=== PATIENT | male | born 1945 | race Caucasian/White ===

== ENCOUNTER 2018-04-20 00:41 | Inpatient (IN) ==
[2018-04-20] MEDS ORDERED: NS 1,000 ML IV ONE ×2 (03:48→07:51)
[2018-04-20 04:00] LABS: BASO# 0.05 X1000 (0.0-0.2); BASO% 0.6 % (0.0-0.8); EOS# 0.16 X1000 (0.0-0.7); HEMATOCRIT 38.9 % (42.0-52.0); HEMOGLOBIN 12.7 g/dL (14.0-18.0); IMM GRAN# 0.02 X1000 (0.0-0.04); IMM GRAN% 0.2 % (0.0-0.5); LYMPH# 1.53 X1000 (1.2-3.4); LYMPH% 18.7 % (20.5-51.1); MCH 30.8 PG (27-31); MCHC 32.6 g/dL (33-37); MCV 94.2 FL (81-99); MONO# 1.23 X1000 (0.11-0.59); MPV 12.1 FL (7.4-10.4); NEUT# 5.19 X1000 (1.4-6.5); NEUT% 63.5 % (42.2-75.2); PLT 141 X1000 (130-400); RBC 4.13 XMIL (4.7-6.1); RDW 13.2 % (11.5-14.5); WBC 8.18 X1000 (4.8-10.8)
[2018-04-20 04:14] LABS: INR 1.04; PROTIME 14.4 Seconds (11.0-16.0)
[2018-04-20 04:33] LABS: ALB/GLOB RATIO 1.1; CALCIUM 8.6 mg/dL (8.8-10.2); CREATININE 2.3 mg/dL (0.7-1.2); MAGNESIUM 2.3 mg/dL (1.5-2.7); POTASSIUM 5.2 mmol/L (3.5-5.1); TOTAL BILIRUBIN 0.43 mg/dL (0.20-1.00); TOTAL PROTEIN 7.8 g/dL (6.3-8.3)
[2018-04-20 04:58] LABS: CK INDEX 0.6 (0.0-2.5); CK-MB 6.51 ng/mL (0.0-5.0)
--- NOTE | 2018-04-20 06:25 | Diag Imaging Result Doc PS360 ---
EXAM: CT HEAD W/O CONTRAST HISTORY: fall. TECHNIQUE: CT head without contrast COMPARISON: None. FINDINGS: No parenchymal hemorrhage. No epidural or subdural hematoma. No subarachnoid hemorrhage. There is mild atrophy with mild chronic microvascular ischemic changes. No mass identified on this noncontrasted exam. No hydrocephalus. No skull fracture. IMPRESSION: No hemorrhage. No injury. A preliminary report was given at 4:23 AM This exam was performed using automated exposure control, adjustment of mA or kV according to patient size, and/or use of iterative reconstruction technique. Electronically signed by Nikko Otero 04/20/2018 6:23 AM
--- NOTE | 2018-04-20 06:45 | PROVIDER DOCUMENTATION ---
HPI-General Adult - General Chief Complaint: General Adult Stated Complaint: "generalized jerking" Time Seen by Provider: 04/20/18 03:40 Source: patient Allergies/Adverse Reactions: Patient Allergies Allergy/AdvReac Type Severity Reaction Status Date / Time No Known Allergies Allergy Verified 04/20/18 04:35 Home Medications: Home Medication List Medication Instructions Recorded Confirmed Last Taken Type Amlodipine [Norvasc] 10 mg PO DAILY 04/20/18 04/20/18 Unknown History Atorvastatin Calcium 40 mg PO HS 04/20/18 04/20/18 Unknown History Baclofen 20 mg PO BID 04/20/18 04/20/18 Unknown History Buspirone HCl 10 mg PO TID 04/20/18 04/20/18 Unknown History Cholecalciferol (Vitamin D3) 2,000 unit PO DAILY 04/20/18 04/20/18 Unknown History [D-1999] Citalopram [Celexa] 40 mg PO DAILY 04/20/18 04/20/18 Unknown History Gabapentin 300 mg PO BID 04/20/18 04/20/18 Unknown History Hydrochlorothiazide 25 mg PO DAILY 04/20/18 04/20/18 Unknown History Lisinopril 40 mg PO DAILY 04/20/18 04/20/18 Unknown History Metoprolol Tartrate 12.5 mg PO BID 04/20/18 04/20/18 Unknown History Psyllium Husk [Daily Fiber] 0.52 gm PO DAILY 04/20/18 04/20/18 Unknown History Ranitidine HCl 150 mg PO BID 04/20/18 04/20/18 Unknown History Spironolactone 25 mg PO DAILY 04/20/18 04/20/18 Unknown History - History of Present Illness -Gen Adult Nature of Presenting Problems: Pt states developing involuntary jerking movements to arms and legs last pm that have worsened. He denies fever or chills. No CP, SOB, MITCHELL. He states having 2 glasses of wine last pm. In the lobby here he stood up and fainted, collapsing to the ground. He denies preceding CP or other symptoms. Review of Systems - Adult - REVIEW OF SYSTEMS - ADULT Constitutional: denies: chills, fever, fatique, night sweats, weight gain Eyes: denies: dry eyes, decreased vision, blurred vision, double vision, redness Ears, Nose, Mouth & Throat: denies: epistaxis, mouth swelling, hoarseness, throat pain, throat swelling Respiratory: reports: no symptoms reported Gastrointestinal: reports: no symptoms reported Musculoskeletal: reports: no symptoms reported Integumentary: reports: no symptoms reported Neurological: reports: see HPI Past History - Adult - PAST MEDICAL HISTORY-ADULT Review of Records: reports: Nursing Assessment Review, Medications Reviewed Physical Exam-General - PHYSICAL EXAM-ADULT Initial Vital Signs Reviewed: Yes - CONSTITUTIONAL General Appearance: alert, obese, other (pale appearing.) - EYES Eyes: PERRL/EOMI, pink conjunctivae - HEAD, EARS, NOSE, MOUTH & THROAT HENMT: normocephalic/atraumatic, moist mucous membranes, normal ENT inspection, pharynx normal, pharyngeal erythema - NECK Neck: full range of motion, supple - RESPIRATORY Respiratory: chest non-tender, lungs clear, normal breath sounds, no respiratory distress - CARDIOVASCULAR Cardiovascular: normal peripheral pulses, regular rate, rhythm, no edema, no JVD - GASTROINTESTINAL (ABDOMEN) Abdominal Exam: normal bowel sounds, non tender, soft - MUSCULOSKELETAL Back Exam: normal inspection, no CVA tenderness Extremity: normal range of motion, non-tender, normal gait - SKIN Integumentary: normal color, normal turgor, warm/dry - NEUROLOGIC Neurologic: other (Occasional jerking movements. Alert, answering questions appropriately.) Progress - PLAN OF CARE/RESULTS Progress/Plan/Lab Results: Vital Signs - 8 hr 04/20/18 01:04 04/20/18 06:18 Temperature 98.3 F 98 F Pulse Rate 74 78 Respiratory Rate 20 20 Blood Pressure 96/81 146/73 O2 Sat by Pulse Oximetry 95 95 Laboratory Results - last 24 hr 04/20/18 04/20/18 04/20/18 03:33 03:50 03:50 WBC 8.18 RBC 4.13 L Hgb 12.7 L Hct 38.9 L MCV 94.2 MCH 30.8 MCHC 32.6 L RDW Std Deviation 13.2 Plt Count 141 MPV 12.1 H Immature Gran % (Auto) 0.2 Neut % (Auto) 63.5 Lymph % (Auto) 18.7 L Warrick % (Auto) 15.0 H Eos % (Auto) 2.0 Baso % (Auto) 0.6 Immature Gran # (Auto) 0.02 Neut # (Auto) 5.19 Lymph # (Auto) 1.53 Warrick # (Auto) 1.23 H Eos # (Auto) 0.16 Baso # (Auto) 0.05 PT INR PTT (Actin FS) Sodium 141 Potassium 5.2 H Chloride 102 Carbon Dioxide 24 L Anion Gap 15 BUN 37 H Creatinine 2.3 H Estimated GFR/1.73 m2 28 BUN/Creatinine Ratio 16 Glucose 100 POC Glucose 111 H Calculated Osmolality 290 Calcium 8.6 L Magnesium 2.3 Total Bilirubin 0.43 AST 40 H ALT 22 Alkaline Phosphatase 55 Creatine Kinase 1038 H Creatine Kinase Index 0.6 CK-MB (CK-2) 6.51 H Troponin T Hdh-Z-Rpwprfilnlu Pept Total Protein 7.8 Albumin 4.0 Globulin 3.8 Albumin/Globulin Ratio 1.1 Plasma Lactate Plasma/Serum Ethyl Alc 04/20/18 04/20/18 04/20/18 03:50 03:50 03:50 WBC RBC Hgb Hct MCV MCH MCHC RDW Std Deviation Plt Count MPV Immature Gran % (Auto) Neut % (Auto) Lymph % (Auto) Warrick % (Auto) Eos % (Auto) Baso % (Auto) Immature Gran # (Auto) Neut # (Auto) Lymph # (Auto) Warrick # (Auto) Eos # (Auto) Baso # (Auto) PT 14.4 INR 1.04 PTT (Actin FS) 34.0 Sodium Potassium Chloride Carbon Dioxide Anion Gap BUN Creatinine Estimated GFR/1.73 m2 BUN/Creatinine Ratio Glucose POC Glucose Calculated Osmolality Calcium Magnesium Total Bilirubin AST ALT Alkaline Phosphatase Creatine Kinase Creatine Kinase Index CK-MB (CK-2) Troponin T 0.014 Wva-G-Sugpbjjbujd Pept 369 H Total Protein Albumin Globulin Albumin/Globulin Ratio Plasma Lactate Plasma/Serum Ethyl Alc 04/20/18 04/20/18 03:50 04:44 WBC RBC Hgb Hct MCV MCH MCHC RDW Std Deviation Plt Count MPV Immature Gran % (Auto) Neut % (Auto) Lymph % (Auto) Warrick % (Auto) Eos % (Auto) Baso % (Auto) Immature Gran # (Auto) Neut # (Auto) Lymph # (Auto) Warrick # (Auto) Eos # (Auto) Baso # (Auto) PT INR PTT (Actin FS) Sodium Potassium Chloride Carbon Dioxide Anion Gap BUN Creatinine Estimated GFR/1.73 m2 BUN/Creatinine Ratio Glucose POC Glucose Calculated Osmolality Calcium Magnesium Total Bilirubin AST ALT Alkaline Phosphatase Creatine Kinase Creatine Kinase Index CK-MB (CK-2) Troponin T Qir-T-Rrxlsdbjhzh Pept Total Protein Albumin Globulin Albumin/Globulin Ratio Plasma Lactate 1.5 Plasma/Serum Ethyl Alc Orders Category Date Time Status Cardiac Monitoring DIRECTED Care 04/20/18 03:36 Active Oxygen Therapy- ED Nursing DIRECTED Care 04/20/18 03:36 Active Saline Loc NOW Care 04/20/18 03:36 Active CHEST-2 VIEWS [RAD] Stat Exams 04/20/18 03:[address] HEAD W/O CONTRAST [CT] Stat Exams 04/20/18 03:40 Completed ALCOHOL BLOOD Stat Lab 04/20/18 03:50 Completed CBC WITH ELECTRONIC DIFF [HEME] Stat Lab 04/20/18 03:50 Completed CK PROFILE [SP CHEM] Stat Lab 04/20/18 03:50 Completed COMPREHENSIVE METABOLIC PANEL [CHEM] Stat Lab 04/20/18 03:50 Completed LACTATE, PLASMA [CHEM] Stat Lab 04/20/18 04:44 Completed MAGNESIUM [CHEM] Stat Lab 04/20/18 03:50 Completed PRO B-NATRIURETIC PEPTIDE Stat Lab 04/20/18 03:50 Completed PROTIME WITH INR [COAG] Stat Lab 04/20/18 03:50 Completed PTT [COAG] Stat Lab 04/20/18 03:50 Completed TROPONIN T Stat Lab 04/20/18 03:50 Completed 0.9% Sodium Chloride Inj [Ns] 1,000 ml Med 04/20/18 03:48 Discontinued IV 999 mls/hr CP/SOB/Palp >45 yrs of Age Stat Oth 04/20/18 03:35 Ordered EKG [EKG] Stat Ther 04/20/18 03:36 Ordered Result Diagrams: 04/20/18 03:50 04/20/18 11:40 Departure - Departure Date of Disposition Decision: 04/20/18 Time of Disposition Decision: 06:44 DIAGNOSIS: Dehydration, Rhabdomyolysis, Syncope Disposition: ADMITTED INPATIENT 09 Certified Medical Emergency: Emergent Condition: Fair - Critical Care Note This patient required my direct & personal management of CC.: No Attestation - Physician/ ANDRE Attestation The physician spent face to face time with patient:: Yes Advanced Practice Provider documentation review:: Supervising physician onsite and consulted in the evaluation and care of this patient. The physician did have a face to face encounter with the patient.
--- NOTE | 2018-04-20 07:21 | EKG Report ---
Test Performed on : 04/20/2018 03:42:15 AM Test Reason : SYNCOPE Blood Pressure : / mmHG Vent. Rate : 069 BPM Atrial Rate : 069 BPM P-R Int : 148 ms QRS Dur : 078 ms QT Int : 412 ms P-R-T Axes : -04 003 009 degrees QTc Int : 441 ms Normal sinus rhythm. Inferior infarct , age undetermined Cannot rule out Anterior infarct , age undetermined Abnormal ECG No previous ECGs available Unconfirmed Result
--- NOTE | 2018-04-20 07:37 | Diag Imaging Result Doc PS360 ---
EXAM: CHEST-2 VIEWS 04/20/2018 HISTORY: SYNCOPE TECHNIQUE: PA and lateral chest COMMENT: The thoracic aorta is tortuous. There may be COPD. There are no focal pulmonary opacities and no previous studies are available for comparison. IMPRESSION: COPD. Electronically signed by Emanuel Cruz 04/20/2018 7:35 AM
[2018-04-20] MEDS ORDERED: HALDOL IM ONE (08:06)
[2018-04-20] MEDS ORDERED: ZOFRAN IV PRN (09:20)
[2018-04-20] MEDS ORDERED: TYLENOL PO PRN (09:23)
[2018-04-20 11:10] LABS: URINE SOURCE CLEAN CATCH
[2018-04-20 11:16] LABS: BILIRUBIN URINE NEGATIVE (NEGATIVE); BLOOD URINE NEGATIVE (NEGATIVE); COLOR YELLOW; GLUCOSE URINE NEGATIVE (NEGATIVE); KETONE URINE NEGATIVE (NEGATIVE); LEUKOCYTES URINE NEGATIVE (NEGATIVE); NITRITE URINE NEGATIVE (NEGATIVE); PROTEIN URINE NEGATIVE (NEGATIVE); TURBIDITY URINE CLEAR (CLEAR); UR EPITHELIAL CELLS <10 /HPF (<10); URINE BACTERIA NEGATIVE /HPF; URINE RBC <10 /HPF (<10); URINE WBC <10 /HPF (<10); UROBILINOGEN URINE NORMAL (NORMAL)
[2018-04-20 11:38] LABS: UR CREAT RANDOM 125.4 mg/dL (14-26); UR PROT RANDOM 10.8 mg/dL
[2018-04-20 11:39] LABS: UR AMPHETAMINES QUAL NONE DETECTED (NONE DETECT); UR BARBITUATES QUAL NONE DETECTED (NONE DETECT); UR BENZODIAZEPIN QUAL NONE DETECTED (NONE DETECT); UR CANNABINOIDS QUAL NONE DETECTED (NONE DETECT); UR COCAINE QUAL NONE DETECTED (NONE DETECT); UR METHADONE QUAL NONE DETECTED (NONE DETECT); UR OPIATES QUAL NONE DETECTED (NONE DETECT); UR OXYCODONE QUAL NONE DETECTED (NONE DETECT); UR PCP QUAL NONE DETECTED (NONE DETECT)
[2018-04-20] MEDS: ZANTAC PO SCH ×2 (11:56→20:19)
[2018-04-20 12:32] LABS: CALCIUM 8.3 mg/dL (8.8-10.2); CREATININE 1.9 mg/dL (0.7-1.2); POTASSIUM 3.8 mmol/L (3.5-5.1)
[2018-04-20 12:51] LABS: CK INDEX 0.6 (0.0-2.5); CK-MB 7.83 ng/mL (0.0-5.0)
--- NOTE | 2018-04-20 13:49 | ECHO REPORT ---
ORDER DATE: 04/20/2018 INDICATIONS: Syncope. Back pain. FINDINGS: 1. Right atrium is mildly enlarged at 4 cm. 2. Mild tricuspid regurgitation. RV systolic pressure of 43. 3. Normal RV size and systolic function. 4. Mild pulmonic insufficiency. 5. Mild left atrial enlargement at 4 cm. 6. No mitral valve prolapse. Trace mitral regurgitation. 7. Normal LV size, end-diastolic dimension of 5.6. Normal wall thicknesses with a posterior and interventricular septal wall thickness 1.1 cm each. Normal LV systolic function. The estimated EF is in the 60% to 65% range. 8. Aortic valve opens well. It is trileaflet. There is no evidence of stenosis or insufficiency. 9. Aorta appears normal in visualized segments. 10. No pericardial effusion is identified. cc: Jovani Morgan MD
[2018-04-20] MEDS: LOPRESSOR PO SCH (20:19)
[2018-04-20] MEDS: LIPITOR PO SCH (20:19)
[2018-04-20 20:56] LABS: CK INDEX 0.7 (0.0-2.5); CK-MB 8.64 ng/mL (0.0-5.0)
--- NOTE | 2018-04-21 03:22 | PROGRESS NOTE ---
DATE: 04/27/2018 SUBJECTIVE: Please note that the history and physical has not been dictated and this is a progress note during the later part of the day. Apparently, the patient had an episode of shaking of bilateral upper extremities lasting a few seconds on 04/18/2018 and then on 04/19/2018, when he was walking across the hallway, his knees gave out and he fell down on his knees without losing his consciousness, and that is why he came to the emergency room. Apparently, according to the history given by the patient in the emergency room when he was lying in the bed , he stood up to make a phone call and as soon as he came out of bed, he started feeling dizzy, fainted, and fell on the floor, hitting his head, and that is why he was admitted. OBJECTIVE: Vital Signs: Vital signs currently suggest temperature of 97.7 degrees, pulse 70 per minute, blood pressure 153/75, saturating 94% on room air. Physical Examination: General: He is alert and oriented x3. Respiratory: Air entry bilaterally equal. No wheeze, rhonchi, crackles. Cardiovascular: S1 and S2 are normal. No murmur or gallop. Abdomen: Soft, nontender. Extremities: No lower extremity edema. Neurologic: Alert and oriented x3. Sensory and motor intact bilaterally. No obvious facial droop. Pupils equal, reactive to light bilaterally. Labs: Suggestive of no leukocytosis, normocytic anemia, normal electrolytes. He does have elevated BUN and creatinine, and he denies known history of kidney disease though. ASSESSMENT AND PLAN: 1. Syncope. Based on history, it appears to be related to neurogenic syncope. EKG has been unremarkable. No telemetric event so far. Echocardiogram has also been unremarkable. We will monitor him for 24 hours. We will also consult occupational and physical therapy. 2. History of hyperlipidemia. Continue home atorvastatin. 3. History of anxiety, depression. Continue buspirone and citalopram. 4. History of essential hypertension. Continue metoprolol. I will add back other home medications as tolerated. 5. History of chronic gastroesophageal reflux disease. Continue ranitidine. 6. Kidney dysfunction. Patient denies any known history of kidney disease. His glomerular filtration rate currently appears to be reduced. I will follow up with urine sodium, which I have added to the previous sample. Urine creatinine is available. I will also get a renal ultrasound to further evaluate his kidney dysfunction. 7. Disposition. The patient remains inside the hospital. If he continues to do better without any telemetric event, plan would be to discharge him back home with outpatient followup in the next 24 to 48 hours. Plan of care was discussed with him. All of his questions have been answered. cc: Wilver Hernandez MD MTDD
[2018-04-21 04:09] LABS: BASO# 0.05 X1000 (0.0-0.2); BASO% 0.8 % (0.0-0.8); EOS# 0.16 X1000 (0.0-0.7); EOS% 2.6 % (0.0-10.0); HEMATOCRIT 44.5 % (42.0-52.0); HEMOGLOBIN 14.3 g/dL (14.0-18.0); IMM GRAN# 0.02 X1000 (0.0-0.04); IMM GRAN% 0.3 % (0.0-0.5); LYMPH# 1.37 X1000 (1.2-3.4); LYMPH% 22.5 % (20.5-51.1); MCH 30.2 PG (27-31); MCHC 32.1 g/dL (33-37); MCV 94.1 FL (81-99); MONO# 1.01 X1000 (0.11-0.59); MONO% 16.6 % (1.7-9.3); MPV 12.1 FL (7.4-10.4); NEUT# 3.47 X1000 (1.4-6.5); NEUT% 57.2 % (42.2-75.2); PLT 145 X1000 (130-400); RBC 4.73 XMIL (4.7-6.1); WBC 6.08 X1000 (4.8-10.8)
[2018-04-21 04:33] LABS: CALCIUM 9.1 mg/dL (8.8-10.2); CREATININE 1.4 mg/dL (0.7-1.2); MAGNESIUM 2.1 mg/dL (1.5-2.7); POTASSIUM 4.6 mmol/L (3.5-5.1)
[2018-04-21 04:52] LABS: CK INDEX 0.6 (0.0-2.5); CK-MB 6.56 ng/mL (0.0-5.0)
--- NOTE | 2018-04-21 09:20 | HISTORY AND PHYSICAL ---
PRIMARY CARE PROVIDER: A physician with the [facility]. CHIEF COMPLAINT: Jerking motions and a syncopal episode. HISTORY OF PRESENT ILLNESS: Mr. Ayala is a 72-year-old male with a past medical history most notable for hypertension, hyperlipidemia, depression, GERD, and reported heart valve abnormality. He states that for approximately 2 days now, he has been having jerking movements in his arms and legs. Her reports that just prior to his arrival to the ER, he was sitting down and went to get up to answer the phone when he had a syncopal episode. He did fall onto the floor. He did hit his head. He did report dizziness just prior to this syncopal episode. Other than this, he denies any other symptoms. He denies any headache, chest pain, shortness of breath. He denies any numbness or tingling in the extremities. He also denies any cough, abdominal pain, nausea or vomiting, or diarrhea. He denies any dysuria or urinary frequency. He denies any pain or swelling in the extremities either. Upon evaluation in the ER, he was noted to have what appears to be acute kidney injury with a creatinine of 2.3 and a GFR of 28. The patient has never been a patient at our facility. We do not have any previous laboratory results to compare his renal function to, and the patient denied any known history of any chronic kidney disease. His potassium was slightly elevated at 5.2. His CK and CK-MB were also elevated. EKG performed in the ER showed normal sinus rhythm at a rate of 69 with a QTC of 441. Upon arrival and his initial vital signs, he was slightly hypotensive with a blood pressure of 96/81, though heart rate was within normal limits at 74, respirations 20. He did have oxygen saturation of 95% on room air. He did have a CT of the head performed in the ER which showed no hemorrhage, no injury. Chest x-ray performed showed only COPD changes. There were no focal pulmonary opacities. The patient will be admitted for further evaluation of his syncope. REVIEW OF SYSTEMS: A 14-point review of systems was conducted with the patient and all were negative except for pertinent positives mentioned above in HPI. PAST MEDICAL HISTORY: 1. Hypertension. 2. Hyperlipidemia. 3. Anxiety. 4. Depression. 5. Gastroesophageal reflux disease. 6. Reported heart valve abnormality, though the patient states this has not required any intervention. PAST SURGICAL HISTORY: 1. Appendectomy. 2. Cataracts. SOCIAL HISTORY: The patient is a former smoker. He denies any alcohol or illicit drug use. He is a . He is followed by the [facility]. FAMILY HISTORY: Positive for his mother and father both having emphysema. ALLERGIES: The patient has no known allergies. HOME MEDICATIONS: 1. Norvasc 10 mg daily. 2. Atorvastatin 40 mg p.o. nightly. 3. Baclofen 20 mg p.o. b.i.d. 4. Buspirone 10 mg p.o. t.i.d. 5. Vitamin D3 2000 units p.o. daily. 6. Celexa 40 mg p.o. daily. 7. Gabapentin 300 mg p.o. b.i.d. 8. Hydrochlorothiazide 25 mg p.o. daily. 9. Lisinopril 40 mg p.o. daily. 10.Metoprolol tartrate 12.5 mg p.o. b.i.d. 11.Psyllium husks 0.52 grams p.o. daily. 12.Ranitidine 150 mg p.o. b.i.d. 13.Spironolactone 25 mg p.o. daily. DIAGNOSTIC DATA AND LABORATORY RESULTS: White blood cell count 8180, hemoglobin 12.7, hematocrit 38.9, platelet count 141. PT 14.4, INR 1.04, PTT 34. Sodium 141, potassium 5.2, chloride 102, serum bicarb 24, BUN 37, creatinine 2.3 with a GFR of 28, glucose 100, calcium 8.6, magnesium 2.3. Liver function tests within normal limits except for AST slightly elevated at 40. CK 1038, index 0.6. CK-MB was 6.51. Troponin 0.014. ProBNP is 369. Plasma lactate was 1.5. Urine drug screen was negative. Serum alcohol was negative as well. Urinalysis as well as some urine chemistries are pending at this time. EKG showed normal sinus rhythm at a rate of 69 with a QTC of 441. Chest x-ray showed COPD. Also noted was that the thoracic aorta was tortuous, but there were no focal pulmonary opacities and no previous studies were available for comparison. CT of the head showed no hemorrhage, no injury. PHYSICAL EXAMINATION: VITAL SIGNS: Temperature 98, heart rate 78, respirations 20, blood pressure 146/73, oxygen saturation 95% on room air. GENERAL: Mr. Ayala is a pleasant 72-year-old male. He was resting on the ER stretcher. He was in no acute distress. He was awake, alert and able to answer questions appropriately. HEENT: Head is atraumatic, normocephalic. Pupils are equal, round and reactive to light, 3 mm bilaterally and brisk. Oral mucosa is moist. Oropharynx clear. NECK: Supple. Trachea midline. No carotid bruits noted on auscultation bilaterally. CARDIOVASCULAR: The patient has normal S1 and S2. No murmurs, gallops or rubs appreciated. Regular rate and rhythm. PULMONARY: The patient has symmetrical chest expansion bilaterally. Lungs sounds were clear to auscultation in bilateral full [place]. ABDOMEN: Soft, nontender, nondistended. Bowel sounds were present in all four quadrants. EXTREMITIES: No cyanosis, clubbing or edema noted. Pulse, motor and sensory were intact in all extremities. Radial pulses and pedal pulses were present. INTEGUMENTARY: The patient's skin is pink, warm,and dry. NEUROLOGIC: The patient is alert and oriented to person, place, time and situation. He is answering questions appropriately and following commands. He has no facial droop noted. There is no speech disturbance present. He has equal hand grasp and muscle strength bilaterally. There was no arm drift noted either. He has equal muscle strength in his legs bilaterally. Upon my examination, the patient did not appear to be exhibiting any jerking motions as he previously described, or a tremor. He does not appear to have any focal neurologic deficits present at this time. ASSESSMENT AND PLAN: 1. Syncope. For further evaluation of this, we have placed further diagnostic studies of echocardiogram, carotid ultrasound. The patient's CK enzymes are a little elevated. We will continue with a series of cardiac enzymes. The patient's syncopal episode was preceded by him going from a sitting to a standing position with which he reported dizziness upon standing and then his syncopal episode occurred. We are going to obtain orthostatic vital signs as well. He will be placed on cardiac telemetry. We will continue to monitor closely and await the results of his diagnostic studies. 2. History of hypertension. The patient was slightly hypotensive on initial arrival, though blood pressure has improved at this time. I would like to get some orthostatics first before continuing his home antihypertensive medications. We will await these results and continue to follow. 3. Hyperlipidemia. Will continue his atorvastatin. 4. History of gastroesophageal reflux disease. Will continue his Zantac. 5. Deep venous thrombosis prophylaxis will be provided with sequential compression devices. The patient did state that he is a [facility] patient and if possible, would like to be transferred to the [facility]. The patient has been placed on the medical floor with telemetry. He will have vital signs q.4 hours. Will do strict intake and output. He will be on a heart healthy diet. The patient did receive 2 liters normal saline bolus in the ER. Further orders and recommendations pending hospital course, diagnostic studies, and physician evaluation. Dictated by SHANTEL Kapadia for Wade Murray MD cc: Wade Murray MD
[2018-04-21] MEDS: NS 1,000 ML IV SCH (10:04)
[2018-04-21] MEDS: LOPRESSOR PO SCH ×2 (10:06→20:26)
[2018-04-21] MEDS: CELEXA PO SCH (10:06)
[2018-04-21] MEDS: BUSPAR PO SCH ×3 (10:06→20:26)
[2018-04-21] MEDS: VITAMIN D PO SCH (10:07)
[2018-04-21] MEDS: ZANTAC PO SCH ×2 (10:07→20:26)
[2018-04-21] MEDS: NORVASC PO SCH (10:07)
[2018-04-21] MEDS: METAMUCIL PO SCH (10:07)
--- NOTE | 2018-04-21 13:12 | Diag Imaging Result Doc PS360 ---
EXAM: US RENAL 2 (RETROPER) COMPLETE HISTORY: amalia/arf TECHNIQUE: Renal ultrasound COMPARISON: None. FINDINGS: The right kidney measures 10.4 x 5.4 x 5.7 cm. Normal renal echotexture and cortical thickness. No hydronephrosis. There is a 1.1 cm cyst inferiorly. There is a 1.1 cm hyperechoic area which appears to be in the cortex. No posterior shadowing. The urinary bladder is distended and is normal. The left kidney measures 9.5 x 6.0 4.5 cm. No hydronephrosis. Normal cortical thickness and renal echotexture. There is a 2.1 cm cyst in the lower pole and several smaller scattered cysts as well. 5 mm hypoechoic area in the lower pole cortex. There is a 7 mm stone in the mid kidney. IMPRESSION: 1.Nonobstructing left renal stone 2.Scattered renal cysts 3.Small hyperechoic densities may represent angiomyolipoma. Electronically signed by Nikko Otero 04/21/2018 1:10 PM
--- NOTE | 2018-04-21 15:52 | PROGRESS NOTE ---
DATE: 04/21/2018 INTERVAL HISTORY: The patient with no further syncopal episodes. Dizziness resolved. Repeat orthostatics now negative. REVIEW OF SYSTEMS: Twelve point review of systems negative except as per interval history. LABS: CBC unremarkable. Creatinine improved to 1.4 and BUN 21. CK decreased to 1095. Troponin remains negative. UDS negative. Urinalysis unremarkable. IMAGING: Renal ultrasound with a few cysts, but no acute process. Echocardiogram with normal EF. No major valve abnormalities; slightly elevated right-sided pressure at 43. Head CT with no acute process. Chest x-ray with no acute process; underlying COPD. PHYSICAL EXAMINATION: Vitals: Temperature maximum 98.3, pulse 71, blood pressure 143/86, respirations 16, O2 saturation 96% on room air. General: No acute distress. HEENT: Normocephalic, atraumatic. Moist mucous membranes. No cervical adenopathy. Cardiovascular: Regular rate and rhythm. No murmurs, rubs or gallops. Pulmonary: Clear to auscultation bilaterally. No wheezing, rales, or rhonchi. Extremities: Peripheral pulses intact. No clubbing, cyanosis, or edema. Neurologic: Cranial nerves II-XII grossly intact. No focal motor or sensory deficits. Psychiatric: Normal mood and affect. Awake, alert, and oriented x3. Skin: No new rashes or lesions identified. ASSESSMENT AND PLAN: 1. Syncope, suspect orthostatic hypotension with syncopal episode related to dehydration. Appears to have resolved with aggressive intravenous fluids. Kidney function improving and CK trending down. Will continue to hydrate and monitor on telemetry, but if no further events are identified, he can likely be discharged tomorrow. 2. Hypertension. The patient is slightly hypotensive on arrival, now somewhat improved after intravenous fluids, holding home blood pressure medications. Will likely discontinue his home diuretics as they are the likely source of his problem. May consider non diuretic blood pressure options if blood pressure continues to rise, as it has been trending up. 3. Hyperlipidemia. Continue atorvastatin. 4. Acute kidney injury. Baseline kidney function unknown. Creatinine elevated to 1.9 on arrival. Creatinine improved today to 1.4 with intravenous fluids. Will continue to hydrate with intravenous fluids and monitor. 5. Mild rhabdomyolysis. CK trending down with fluids as above. Continue to monitor. 6. Gastroesophageal reflux disease. Continue home Zantac. 7. Deep venous thrombosis prophylaxis with sequential compression devices. 8. Disposition. Likely home tomorrow if kidney function and CK continue to improve.
[2018-04-21] MEDS: LIPITOR PO SCH (20:26)
[2018-04-22 07:40] LABS: CALCIUM 9.4 mg/dL (8.8-10.2); CREATININE 1.5 mg/dL (0.7-1.2); POTASSIUM 4.8 mmol/L (3.5-5.1)
[2018-04-22] MEDS: VITAMIN D PO SCH (08:17)
[2018-04-22] MEDS: NORVASC PO SCH (08:17)
[2018-04-22] MEDS: LOPRESSOR PO SCH (08:17)
[2018-04-22] MEDS: BUSPAR PO SCH (08:17)
[2018-04-22] MEDS: METAMUCIL PO SCH (08:17)
[2018-04-22] MEDS: ZANTAC PO SCH (08:17)
[2018-04-22] MEDS: CELEXA PO SCH (08:17)
[2018-04-22] MEDS: NS 1,000 ML IV SCH (09:39)
[2018-04-22 11:26] VITALS: BP 134/83
--- NOTE | 2018-04-22 12:40 | Carotid Study ---
DATE: 04/20/2018 PROCEDURE: Carotid duplex imaging. REFERRING PHYSICIAN: Dr. Douglas in Emergency Department INTERPRETING PHYSICIAN: Dr. Pina TECH: Stacy INDICATIONS: Syncope. EQUIPMENT: [employer] E9 ultrasound system with a 9LD transducer. OBSERVED DATA RIGHT LEFT Brachial Blood Pressure Carotid Pulse Bruits: Carotid/Sub DIAGRAM OF ULTRASOUND IMAGING R L RIGHT INT EXT INT EXT LEFT Rajesh (cm/s) Rajesh (cm/s) Subclavian 61/2 Subclavian 69/5 CCA Proximal 123/11 CCA Proximal 98/9 CCA Distal 91/11 CCA Distal 84/12 Bulb 81/13 Bulb 65/14 ICA Proximal 57/4 ICA Proximal 36/7 ICA Mid 51/12 ICA Mid 65/17 ICA Distal 48/12 ICA Distal 45/15 ECA 87/2 ECA 92/8 Vertebral 55/13 Vertebral 34/9 ICA/CCA Ratio 0.46 ICA/CCA Ratio 0.66 % Stenosis 0 to 39 % Stenosis 0 to 39 FINDINGS: Minimal atherosclerosis which at this time does not produce a hemodynamically significant flow limiting stenosis. Both vertebral arteries are antegrade flow. PHYSICIAN INTERPRETATION: By strict velocity criteria, no hemodynamically significant flow limiting stenosis. cc: Grant Pina MD
--- NOTE | 2018-04-23 13:36 | DISCHARGE SUMMARY ---
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 Head CT unremarkable. Chest x-ray: Evidence of COPD but no acute process. Echocardiogram: Normal EF, mild tricuspid regurg, mild pulmonic insufficiency. LABORATORY DATA: Initial BUN and creatinine 30 and 1.9. Discharge BUN and creatinine 19 and 1.5. Initial CK 1267. Repeat CK 1095. Troponin negative x3. BNP is 369. Urinalysis unremarkable. UDS negative. DISCHARGE DIAGNOSES: 1. Orthostatic hypotension. 2. Dehydration. 3. Acute kidney injury on chronic kidney disease 3. 4. Mild rhabdomyolysis. 5. Hyperlipidemia. 6. Hypertension. 7. Gastroesophageal reflux disease. HOSPITAL COURSE: The patient presented after a syncopal episode. On evaluation in the ED, he was found to have a mildly elevated CK at approximately 1200, elevated creatinine 1.9. He was orthostatic at that time. He was hydrated aggressively with improvement in his orthostatics. Decreased CK and improvement in creatinine. He was watched for 1 additional day to see if his creatinine would improve further, but it remained essentially stable with a creatinine of 1.5. No baseline for comparison but given stability presume this is chronic CKD 3. Imaging as above, was unremarkable. Echo was unremarkable. There were no events on telemetry. His other workup was unremarkable and patient improved with hydration. Holding his home blood pressure medications and is presumably dehydration related to his home diuretics. The day after his presentation, he was continued on the rest of his blood pressure medicine as his blood pressure did trend up. His diuretics were held pending repeat labs and evaluation by his PCP post discharge. DISCHARGE VITAL SIGNS: Temperature 98.8, pulse 70, respirations 20, blood pressure 134/83, O2 saturation 95% on room air. DISCHARGE PHYSICAL EXAMINATION: General: No acute distress. Vital Signs: As above. HEENT: Normocephalic, atraumatic. Moist mucous membranes. No cervical adenopathy. Cardiovascular: Regular rate and rhythm. No murmurs, rubs, or gallops. Pulmonary: Clear to auscultation bilaterally. No wheezing, rales, or rhonchi. Abdomen: Soft, nontender, nondistended. Bowel sounds positive. Extremities: Peripheral pulses intact. No clubbing, cyanosis , or edema. Psychiatric: Normal mood and affect. Awake, alert, oriented x3. Skin: No new rashes or lesions noted. DISCHARGE DIET: Low salt. DISCHARGE MEDICATIONS: 1. Norvasc 10 mg p.o. daily. 2. Atorvastatin 40 mg p.o. at bedtime. 3. Baclofen 20 mg p.o. b.i.d. as needed. 4. Buspirone 10 mg p.o. t.i.d. 5. Vitamin D. 6. Celexa 40 mg p.o. daily. 7. Gabapentin 300 mg p.o. daily. 8. Lisinopril 40 mg p.o. daily. 9. Metoprolol 12.5 mg p.o. b.i.d. 10. Ranitidine 150 mg p.o. b.i.d. 11. Tylenol as needed. FOLLOWUP AND PLAN: The patient to discharge home. Follow up with PCP for recheck labs and blood pressure check. Hold home diuretics. Advised the patient to hydrate aggressively for the next few days. Greater than 30 minutes spent arranging discharge and counseling patient. [facility]
== END 2018-04-22 12:43 | disposition home or self-care (01) | DRG 683 ==
LOC: ED 00:41 → 3N 10:58 → SUATTDRO 10:58
PROVIDERS: ATTEND Internal Medicine
CPT/HCPCS: 70450; 71020; 71046; 76770; 80048; 80053; 80101; 80301; 80307; 80320; 80324; 80345; 80346; 80353; 80358; 80361; 80365; 81001; 82055; 82550; 82553; 82570; 82948; 83605; 83735; 83880; 83992; 84156; 84300; 84484; 85025; 85610; 85730; 93005; 93306; 93880; 94761; 96360; 96372; 99285; A9270; G0431; G0434; G0479; G0480; G6040; J1630; J7030; XXXXX